=== PATIENT | male | born 1960 | race Caucasian/White ===

== ENCOUNTER 2019-06-28 12:10 | Outpatient (CLI) | payer OTHER ==
--- NOTE | 2019-06-28 15:13 | MRI Report ---
Reason: CERVICAL RADICULOPATHY Procedure Date: 06/28/2019 Accession Number: [id number] / [id number] Procedure: MRI - Cervical Spine W/O CPT Code: FULL RESULT: EXAM: MRI CERVICAL SPINE WITHOUT CONTRAST EXAM DATE: 06/28/2019 01:15 PM. CLINICAL HISTORY: 59-year-old male. CERVICAL RADICULOPATHY. COMPARISONS: None. TECHNIQUE: Multiplanar, multisequence T1-weighted and fluid-sensitive sequences of the cervical spine without contrast. Other: None. FINDINGS: Neurologic Structures: The visualized posterior fossa structures are unremarkable. No signal abnormality in the visualized spinal cord. Alignment: Grade 1 retrolisthesis C3 on C4 measuring 2 mm. Bone Marrow: No gross fractures. A T1 and T2 hyperintense lesion within the dens is nonspecific, may represent a benign hemangioma. Mild Modic type I degenerative endplate changes at C5-C6 level with mild endplate edema. 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 Interspace Levels/Facets: C1-C2: Unremarkable. C2-C3: Moderate to severe left thumb mild right facet arthropathy. No superimposed central canal narrowing. Moderate left and [id number] right foraminal narrowing. C3-C4: Mild disk height loss and desiccation. Moderate posterior disk osteophyte complex. Mild bilateral facet arthropathy. Moderate central canal narrowing. Moderate to severe bilateral foraminal narrowing. C4-C5: Mild disk height loss and desiccation. Moderate posterior disk osteophyte complex. Mild bilateral facet arthropathy. Bilateral uncovertebral spurring. Moderate central canal narrowing with mass-effect on the cord. Severe right and moderate to severe left foraminal narrowing. C5-C6: Moderate to severe disk height loss and desiccation. Large posterior disk osteophyte complex. Moderate bilateral uncovertebral spurring. Mild bilateral facet arthropathy. Moderate to severe central canal narrowing with mass-effect on the cord. Severe left and moderate to severe right foraminal narrowing. C6-C7: Moderate to severe disk height loss and desiccation. Large posterior disk osteophyte complex. Moderate to severe bilateral uncovertebral spurring. Mild bilateral facet arthropathy. Moderate to severe central canal narrowing with mass-effect on the cord. Severe bilateral foraminal narrowing. C7-T1: Mild diffuse disk bulge. Moderate to severe bilateral facet arthropathy. Mild central canal narrowing. Moderate right and mild to moderate left foraminal narrowing. Musculature: Normal. No edema or fatty atrophy. Other: The paravertebral and prevertebral soft tissues are normal. IMPRESSION: 1. Moderate to severe multilevel degenerative spondylosis, as detailed above and summarized below. 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 No definite cord signal abnormality despite mass-effect on the cord at several levels. No acute fracture or traumatic subluxation. 2. Mild Modic type I degenerative endplate changes at C5-C6 level with mild endplate edema. Modic type I changes may represent a source of pain. 3. C2-C3: No superimposed central canal narrowing. Moderate left and [id number] right foraminal narrowing. Recommend correlation for left C3 radicular symptoms. 4. C3-C4: Moderate central canal narrowing. Moderate to severe bilateral foraminal narrowing. Recommend correlation for bilateral C4 radicular symptoms. 5. C4-C5: Moderate central canal narrowing with mass-effect on the cord. Severe right and moderate to severe left foraminal narrowing. Recommend correlation for right greater than left C5 radicular symptoms. 6. C5-C6: Moderate to severe central canal narrowing with mass-effect on the cord. Severe left and moderate to severe right foraminal narrowing. Recommend correlation for left greater than right C6 radicular symptoms. 7. C6-C7: Moderate to severe central canal narrowing with mass-effect on the cord. Severe bilateral foraminal narrowing. Recommend correlation for bilateral C7 radicular symptoms. 8. C7-T1: Mild central canal narrowing. Moderate right and mild to moderate left foraminal narrowing. Recommend correlation for right C8 radicular symptoms. RADIA
== END 2019-06-28 12:11 | disposition home or self-care (01) ==
LOC: DI 12:10
PROVIDERS: ATTEND General Practice
DX: M50.31 Other cervical disc degeneration, high cervical region (principal); M48.02 Spinal stenosis, cervical region; M47.812 Spondylosis without myelopathy or radiculopathy, cervical region
CPT/HCPCS: 72141

== ENCOUNTER 2021-03-06 11:56 | Emergency (ER) | payer OTHER ==
--- OUTSIDE RECORDS SUMMARY | 2021-03-06 12:35 | EXTERNAL MEDICAL SUMMARY RPT | Continuity of Care Document ---
:1960 Demographics Phone Unavailable Preferred Language Unknown Marital Status Unknown Jew Affiliation Unknown Race Unknown Ethnic Group Unknown Author Organization [facility] [address] [place] [address] Phone Allergies Encounters Medications Problems Results
[2021-03-06] MEDS ORDERED: LIDOCAINE 1%-EPI 1:100000 20 ML MDV SUBQ STA (13:27)
[2021-03-06] MEDS ORDERED: LIDOCAINE-EPINEPH-TETRACAINE 3 ML SYRINGE TOP STA (13:27)
--- NOTE | 2021-03-06 13:27 | ED Physician Documentation ---
PD HPI UPPER EXT INJURY - Stated complaint Stated Complaint: RT HAND LAC - Chief complaint Chief Complaint: Laceration - History obtained from History obtained from: Patient - History of Present Illness Location: Right, Hand (piece of wood FB in right palm as he was tossing scrap wood into dump. The end of it was just under skin and not reachable.) Type of injury: Foreign body Timing - onset: Today (just [employer]) Timing - details: Abrupt onset, Still present Worsened by: Moving, Palpating Associated symptoms: No: Weakness, Numbness Similar symptoms before: Has not had sx before Review of Systems Neurologic: denies: Focal weakness, Numbness PD PAST MEDICAL HISTORY - Past Medical History Past Medical History: Yes Cardiovascular: Hypertension Respiratory: None Neuro: None Endocrine/Autoimmune: None GI: GERD : None HEENT: Chronic vision loss Psych: None Musculoskeletal: None Derm: None - Past Surgical History Past Surgical History: No - Allergies Allergies/Adverse Reactions: Allergies Allergy/AdvReac Type Severity Reaction Status Date / Time No Known Drug Allergies Allergy Verified 03/06/21 13:35 - Social History Does the pt smoke?: No Smoking Status: Never smoker PD ED PE NORMAL - Vitals Vital signs reviewed: Yes - General General: Alert and oriented X 3, No acute distress, Well developed/nourished - Derm Derm: Normal color, Warm and dry - Extremities Extremities: Other (right palm with palpable FB just running under skin with puncture wound and the end of the shard felt just under it. ) - Neuro Neuro: No motor deficit, No sensory deficit Results - Vitals Vitals: Vital Signs - 24 hr 03/06/21 03/06/21 12:10 14:45 Temperature 36.5 C 36.5 C Heart Rate 66 64 Respiratory 16 16 Rate Blood Pressure 108/76 110/78 O2 Saturation 99 100 Oxygen O2 Source Room air Procedures - FB removal FB location: Subcutaneous (right palm) FB removal preparation: Local anesthesia-specify Removal method: Foreceps (pulling at the end had just small splinters of it come off, so had to unroof the FB along its length half way with scalpel, remove FB en whole, and then suture the lac with 5 sutures.), Incision PD MEDICAL DECISION MAKING - ED course Complexity details: considered differential (it is a 3 cm shard of wood (small stick rather than a splinter).), d/w patient Departure - Departure Disposition: Home, Self Care Clinical Impression: Splinter of upper extremity Qualifiers: Encounter type: initial encounter Laterality: right Qualified Code(s): S40.851A - Superficial foreign body of right upper arm, initial encounter Condition: Stable Record reviewed to determine appropriate education?: Yes Instructions: ED Laceration Hand Comments: It is okay to wash and shower. Clean off the wound twice a day with soap and water, or peroxide and water. Apply some antibiotic ointment to it to keep it moist. Also to watch for signs of infection such as purulence, redness or increasing pain. Return to your primary care or the ER at the specified time for suture removal. Suture removal 8 to 10 days. Tylenol ibuprofen as needed for pains. Discharge Date/Time: 03/06/21 14:45
[2021-03-06 14:46] VITALS: BP 110/78
== END 2021-03-06 14:45 | disposition home or self-care (01) ==
LOC: ED 11:56
DX: S61.441A Puncture wound with foreign body of right hand, initial encounter (principal); W45.8XXA Other foreign body or object entering through skin, initial encounter; Y93.89 Activity, other specified; Y92.89 Other specified places as the place of occurrence of the external cause; I10 Essential (primary) hypertension
CPT/HCPCS: 10120